=== PATIENT | male | born 1965 | race Hispanic/Latino ===

== ENCOUNTER 2016-08-18 22:14 | Emergency (ER) | payer OTHER ==
[~2016-08-18] VITALS: Ht 188 cm; Wt 97.5 kg
[~2016-08-18 22:14] MED LIST: FLOMAX(MONOGRA0.4 MG PO; FOSINOPRIL PO; FOSINOPRIL-HCT1 EACH PO; GLIMEPIRIDE4 MG PO; GLUCOPHAGE1000 M1 PO; HYDROCHLOROTHIAZIDE PO; KEFLEX500 M1 PO; NORFLEX100 MG PO; OXYCODONE-ACETAMINOP PO; PERCOCET 325 MG1 TA2 PO; PERCOCET 5-3251 EACH PO; VICODIN5-300 PO; VOLTAREN75 MG PO
--- NOTE | 2016-08-19 00:14 | ED GENERAL ADULT ---
History of Present Illness General Chief Complaint: Lower Extremity Problems Stated Complaint: L LEG PAIN Source: patient, old records Exam Limitations: no limitations Vital Signs & Intake/Output Vital Signs & Intake/Output Vital Signs Date Time Temp Pulse Resp B/P Pulse O2 O2 Flow FiO2 Ox Delivery Rate 08/19 0036 97.3 77 18 136/84 97 Room Air 08/19 0035 Room Air 08/18 2224 97.6 76 18 147/93 96 Room Air ED Intake and Output 08/19 0000 08/18 1200 Intake Total Output Total Balance Patient 215 lb Weight Allergies Coded Allergies: Iodinated Contrast Media - Oral and (Iodinated Contrast Media - IV Dye) (Severe, ANAPHYLAXIS 04/20/16) Reconcile Medications Cephalexin (Keflex) 500 MG CAPSULE 1 CAP PO TID paronychia Cyclobenzaprine HCl 5 MG TABLET 1-2 TAB PO QPM PRN muscle relaxant may cause drowsiness Diclofenac Sodium 75 MG TABLET.DR 1 TAB PO BID PRN pain/inflammation Fosinopril/Hydrochlorothiazide (Fosinopril-Hctz 20-12.5 MG Tab) 20 MG-12.5 MG TABLET 1 TAB PO DAILY HEART (Reported) Glimepiride 4 MG TABLET 1 TAB PO BID NIDDM (Reported) Metformin HCl (Glucophage) 1,000 MG TABLET 1 TAB PO BID DIABETES (Reported) Triage Note: PT TO TRIAGE WITH BACK SIDE OF LEFT THIGH PAIN 01/01 SINCE THURSDAY. PT DENIES ANY INJURY. NO OTHER COMPLAINTS. VSS. Triage Nurses Notes Reviewed? yes HPI: Patient is a 51-year-old male presents complaining of left thigh pain onset on Thursday. Pain is an aching/sharp pain is mild at rest, currently moderate with ambulation but has been severe at times. Patient has been taking ibuprofen with no significant improvement. Patient does not recall any injury or inciting factor. Patient denies rash, swelling, fall, decreased range of motion, back pain, abdominal pain. (ILSA BAPTISTE,BINA) Past History Travel History Traveled to [place] past 21 day No Medical History Any Pertinent Medical History? see below for history Neurological: NONE EENT: NONE Cardiovascular: hypertension, BORDERLINE CHOLESTEROL Respiratory: NONE Gastrointestinal: NONE Hepatic: NONE Renal: NONE Musculoskeletal: NONE Psychiatric: NONE Endocrine: diabetes Blood Disorders: NONE Cancer(s): NONE PPA TEACHER/Reproductive: NONE Surgical History Surgical History: non-contributory Psychosocial History What is your primary language Faroese Tobacco Use: Never used Family History Family History, If Any: Relation not specified for: Kidney stone Hx Contributory? No (BINA BEARDEN) Review of Systems Review of Systems Constitutional: Denies: chills, fever. Respiratory: Denies: short of breath. Cardiovascular: Denies: chest pain. GI: Denies: abdominal pain. Genitourinary: Reports: no symptoms. Denies: pain. Musculoskeletal: Reports: see HPI. Denies: back pain. Skin: Reports: no symptoms. Neurological/Psychological: Denies: numbness, paresthesia. Hematologic/Endocrine: Denies: bruising, bleeding. Immunologic/Allergic: Denies: splenectomy. (BINA BEARDEN) Physical Exam Physical Exam General Appearance: well developed/nourished, alert, awake Head: atraumatic, normal appearance Eyes: Bilateral: normal appearance. Ears, Nose, Throat: hearing grossly normal Neck: normal inspection, supple, full range of motion Respiratory: no respiratory distress Peripheral Pulses: 2+ popliteal (L) Back: normal inspection, normal range of motion Extremities: MILD TENDERNESS LEFT GROIN AND MEDIAL QUADRICEPS. NO PALPABLE LYMPHADENOPATHY, NO ERYTHEMA OR PALPABLE LESIONS. FULL RANGE OF MOTION OF ALL 4 EXTREMITIES Neurologic/Psych: no motor/sensory deficits, awake, alert, oriented x 3, normal gait, normal mood/affect Skin: intact, normal color, warm/dry Lymphatic: NO PALPABLE INGUINAL LYMPHADENOPATHY Core Measures ACS in differential dx? No CVA/TIA Diagnosis: No Severe Sepsis Present: No Septic Shock Present: No (BINA BEARDEN) Progress Differential Diagnoses I considered the following diagnoses in my evaluation of the patient: Muscle strain, sprain, DVT, hernia, superficial thrombophlebitis, lymphadenopathy, arterial aneurysm Plan of Care: Imaging deferred secondary to exam. Low suspicion DVT. Provided patient with an outpatient radiology order form to obtain venous Doppler if no improvement within 1-2 days. Suspect muscular pain, we'll treat conservatively and have follow-up if no improvement. Initial ED EKG: none (BINA BEARDEN) Departure Departure Disposition: HOME OR SELF CARE Condition: Stable Clinical Impression Primary Impression: Quadriceps strain Qualifiers: Encounter type: initial encounter Laterality: left Qualified Code: S76.112A - Strain of left quadriceps muscle, fascia and tendon, initial encounter Referrals: COLBY VENEGAS,PREMA Salgado (PCP/Family) Additional Instructions: Rest, apply heat to the affected area for 20 minutes 4-5 times a day. Follow-up with your primary doctor if no improvement within 3-5 days. If you are not improving over the next 1-2 then use the radiology order form provided to you to obtain an ultrasound of your left leg. Return to the ER if you develop redness to your leg, numbness, weakness, pain uncontrollable or worsening of symptoms. Departure Forms: Customer Survey General Discharge Information Prescriptions: Current Visit Scripts Diclofenac Sodium 1 TAB PO BID PRN pain/inflammation #10 TAB Cyclobenzaprine HCl 1-2 TAB PO QPM PRN muscle relaxant #10 TAB may cause drowsiness (BINA BEARDEN) PA/HOPPER FEEDER Co-Sign Statement Statement: ED Attending supervision documentation- [] I saw and evaluated the patient. I have also reviewed all the pertinent lab results and diagnostic results. I agree with the findings and the plan of care as documented in the PA's/HOPPER FEEDER's documentation. [X] I have reviewed the ED Record and agree with the PA's/HOPPER FEEDER's documentation. [] Additions or exceptions (if any) to the PAs/HOPPER FEEDER's note and plan are summarized below: [] (VANNA VENEGAS,CELENA Issa) Critical Care Note Critical Care Note Critical Care Time: non-applicable (BINA BEARDEN)
[2016-08-19] MEDS ORDERED: DICLOFENAC SODI75 M2 PO (00:31)
[2016-08-19] MEDS ORDERED: CYCLOBENZAPRINE5 M2 PO (00:31)
[2016-08-19 00:36] VITALS: BP 136/84
== END 2016-08-19 00:37 ==
LOC: ERH 22:14
DX: S76.112A Strain of left quadriceps muscle, fascia and tendon, initial encounter (principal)

== ENCOUNTER 2016-10-18 16:10 | Emergency (ER) | payer OTHER ==
[~2016-10-18] VITALS: Ht 188 cm; Wt 94.3 kg
[~2016-10-18 16:10] MED LIST changes: +CYCLOBENZAPRINE5 M2 PO; +DICLOFENAC SODI75 M2 PO
[2016-10-18 16:18] VITALS: BP 122/86
--- NOTE | 2016-10-18 16:33 | ED INFLUENZA/URI COMPLAINT ---
History of Present Illness General Chief Complaint: General Adult Stated Complaint: CHILLIS BODY ACHES (NO FEVER) Source: patient Exam Limitations: no limitations Vital Signs & Intake/Output Vital Signs & Intake/Output Vital Signs Date Time Temp Pulse Resp B/P B/P Pulse O2 O2 Flow FiO2 Mean Ox Delivery Rate 10/18 1618 97.0 100 16 122/86 96 Room Air Allergies Coded Allergies: Iodinated Contrast Media - Oral and (Iodinated Contrast Media - IV Dye) (Severe, ANAPHYLAXIS 04/20/16) Reconcile Medications Albuterol Sulfate (Ventolin Hfa) 90 MCG HFA.AER.AD 2 PUF INH Q4-6 PRN PRN BRONCHITIS Benzonatate (Tessalon Perle) 100 MG CAPSULE 1 CAP PO TID PRN COUGH Cephalexin (Keflex) 500 MG CAPSULE 1 CAP PO TID paronychia Codeine Phosphate/Guaifenesi (Cheratussin AC Syrup) 10 MG-100 MG/5 ML LIQUID 10 ML PO TID PRN COUGH DO NOT TAKE WHILE OPERATING MOTOR VEHICLES Cyclobenzaprine HCl 5 MG TABLET 1-2 TAB PO QPM PRN muscle relaxant may cause drowsiness Diclofenac Sodium 75 MG TABLET.DR 1 TAB PO BID PRN pain/inflammation Fosinopril/Hydrochlorothiazide (Fosinopril-Hctz 20-12.5 MG Tab) 20 MG-12.5 MG TABLET 1 TAB PO DAILY HEART (Reported) Glimepiride 4 MG TABLET 1 TAB PO BID NIDDM (Reported) Meloxicam (Mobic) 15 MG TABLET 1 TAB PO DAILY PRN pain Metformin HCl (Glucophage) 1,000 MG TABLET 1 TAB PO BID DIABETES (Reported) Triage Note: PT STATES HE HAD BRONCHITIS AND ASTHMA AND HE TOOK THE MEDICATION AND HE DOES NOT FEEL ANY BETTER. PT STATES HE CAN'T STIO COUGHING AND HE HAS DARK YELLOW SPUTUM Triage Nurses Notes Reviewed? yes Onset: Gradual Duration: constant Timing: recent history Severity: moderate Severity Numbers: 5 HPI: Patient is a 51-year-old male with a past medical history of type 2 diabetes who presents emergency room with a five-day history of cough that he aches chills and generalized not feeling well and which he was evaluated 4 days ago by primary care doctor where ciprofloxacin and Medrol Dosepak was administered where patient still has persistent symptoms. Patient does not feel worse however Patient denies any smoking history however does have similar sick contacts at home. Denies any current fevers neck pain neck stiffness chest pain shortness breath or arm pain jaw pain nausea vomiting. Past History Travel History Traveled to [place] past 21 day No Medical History Any Pertinent Medical History? see below for history Neurological: NONE EENT: NONE Cardiovascular: hypertension, BORDERLINE CHOLESTEROL Respiratory: NONE Gastrointestinal: NONE Hepatic: NONE Renal: NONE Musculoskeletal: NONE Psychiatric: NONE Endocrine: diabetes Blood Disorders: NONE Cancer(s): NONE MOTEL FRONT DESK CLERK/Reproductive: NONE Surgical History Surgical History: non-contributory Psychosocial History What is your primary language Hungarian Tobacco Use: Quit >30 days ago ETOH Use: occasional use Illicit Drug Use: denies illicit drug use Family History Family History, If Any: Relation not specified for: Kidney stone Hx Contributory? No Review of Systems Review of Systems Constitutional: Reports: see HPI, chills. EENTM: Reports: no symptoms. Respiratory: Reports: see HPI, cough. Cardiovascular: Reports: no symptoms. GI: Reports: no symptoms. Genitourinary: Reports: no symptoms. Musculoskeletal: Reports: see HPI, joint pain. Skin: Reports: no symptoms. Neurological/Psychological: Reports: no symptoms. Hematologic/Endocrine: Reports: no symptoms. Immunologic/Allergic: Reports: no symptoms. All Other Systems: Reviewed and Negative Physical Exam Physical Exam General Appearance: no apparent distress, alert Ears, Nose, Throat: normal ENT inspection, moist mucous membrane, hearing grossly normal, Tympanic normal, pharynx normal Comments: Well-developed well-nourished person in no acute distress HEENT: Normal EENT exam, extraocular motion intact, no nystagmus. Pupils equally round and reactive to light and accommodation. Nose is atraumatic. External auditory canal and Tympanic membranes clear. Pharynx normal. No swelling or edema. Neck: Supple, no lymphadenopathy, normal range of motion without pain or tenderness Back: Nontender, no CVA tenderness. Cardiovascular: Regular rate and rhythms no murmurs rubs or gallops, normal JVP Respiratory: Chest nontender. No respiratory distress.breath sounds clear to auscultation bilaterally Abdomen: Soft, nontender nondistended, no appreciable organomegaly. Normal bowel sounds. No ascites Extremity: No edema, no calf tenderness to palpation, normal and equal pulses. Neuro: Alert oriented x3, motor sensory normal, Skin: No appreciable rash on exposed skin, skin is warm and dry. Psych: Mood and affect is normal, memory and judgment is normal. Core Measures Severe Sepsis Present: No Septic Shock Present: No Progress Differential Diagnosis: influenza, meningitis, neutropenia, otitis, pneumonia, pharyngitis, sinusitis Plan of Care: Patient currently is afebrile nontoxic-appearing EENT was unremarkable. Nontender abdomen clear lungs auscultation. Patient will be treated for concerns of viral syndrome and bronchitis upon discharge patient looks well no apparent distress and will comply with discharge instructions and had no questions Patient however was strongly advised to continue taking previously prescribed medication Initial ED EKG: none Departure Departure Disposition: HOME OR SELF CARE Condition: Stable Clinical Impression Primary Impression: Viral syndrome Secondary Impressions: Bronchitis Referrals: COLBY VENEGAS,PREMA Salgado (PCP/Family) Additional Instructions: As discussed continue home medications and recently prescribed medications for your symptoms. Begin the prescription of Tessalon Perles and Cheratussin for your cough in the prescription of Ventolin for improvement of breathing. Prescription is waiting a [facility]. Begin the prescription meloxicam for pain and inflammation. If symptoms worsen return to emergency room. If no better on Thursday follow-up with her primary care doctor Departure Forms: Customer Survey General Discharge Information Prescriptions: Current Visit Scripts Benzonatate (Tessalon Perle) 1 CAP PO TID PRN COUGH #21 CAP Codeine Phosphate/Guaifenesi (Cheratussin AC Syrup) 10 ML PO TID PRN COUGH #100 ML DO NOT TAKE WHILE OPERATING MOTOR VEHICLES Albuterol Sulfate (Ventolin Hfa) 2 PUF INH Q4-6 PRN PRN BRONCHITIS #1 INHAL Meloxicam (Mobic) 1 TAB PO DAILY PRN pain #14 TAB
[2016-10-18] MEDS ORDERED: CHERATUSSIN AC118 M1 PO (16:46)
[2016-10-18] MEDS ORDERED: VENTOLIN HFA18 GM INH (16:46)
[2016-10-18] MEDS ORDERED: TESSALON PERLE100 M1 PO (16:46)
[2016-10-18] MEDS ORDERED: MOBIC15 M1 PO (16:47)
== END 2016-10-18 16:52 ==
LOC: ERH 16:10
DX: B34.9 Viral infection, unspecified (principal); J40 Bronchitis, not specified as acute or chronic; Z87.891 Personal history of nicotine dependence